=== PATIENT | female | born 1985 | race Caucasian/White ===

== ENCOUNTER 2016-10-18 15:26 | Emergency (ER) | payer OTHER ==
[~2016-10-18] VITALS: Ht 185.4 cm; Wt 125.9 kg
[~2016-10-18 15:26] MED LIST: ACET325C PO; ALBU8.5H2 INHALATION; ETON68IM3 SQ; FLUT9.9S NS; HYDR-4003 PO; OMEP20CA11 PO; ONDA4TAB6 PO; OXYC1TAB24 PO; VARE1TAB21 PO
[2016-10-18 15:30] VITALS: BP 120/73; PULSE 77; RESP 10; O2SAT 99
--- NOTE | 2016-10-18 16:34 | DRSVH ---
PROCEDURE: X-RAY RIGHT ANKLE, MINIMUM THREE VIEWS ([id number]) INDICATIONS: fall TECHNIQUE: 3 views of the ankle were acquired. COMPARISON: None. FINDINGS: Bones: No fractures or dislocations. Ankle mortise is normally aligned. No suspicious bony lesions . Posterior calcaneal enthesophyte. Soft tissues: No tibiotalar joint effusion. Achilles tendon appears normal. IMPRESSION: No displaced fracture seen. If there is continued pain, followup exam or additional carroll ging such as MRI or CT could be performed for further assessment. Dictated by: Oliver Adams RRA Interpreted: Rupal Rosado MD on 10/18/2016 at 16:33 Transcribed by: LOIDA on 10/18/2016 at 16:34 Approved by: Rupal Rosado MD, PhD on 10/18/2016 at 17:21
--- NOTE | 2016-10-18 16:35 | ED.REPORT ---
HPI-Extremity Problem Lower Date of Service Oct 18, 2016 ED Provider: Pardeep Way PA-C Claudia is an otherwise healthy 31-year-old female who presents with a chief complaint of right ankle pain. She reports the pain started this morning when she slipped in a puddle and had to adjust rapidly to keep from falling. She describes sharp pain with weightbearing on the lateral aspect of her ankle and the top of her foot. She has been able to bear weight since the accident. Denies numbness, tingling. Nursing Notes Stated Complaint: RT ANKLE PAIN Chief Complaint: Extremity Trauma Nursing Notes Reviewed: Yes Allergies: Coded Allergies: fluoxetine HCl (Verified Allergy, Severe, Rash,SUICIDAL IDEATION, 03/16/16) Coconut (Verified Allergy, Intermediate, HIVES, 03/16/16) bupropion HCl (Verified Allergy, Mild, Hives, 03/16/16) ibuprofen (Unverified Adverse Reaction, Severe, GI BLEEDING, 03/16/16) sertraline (Unverified Adverse Reaction, Severe, MIGRAINE HEADACHE, ) Scheduled Albuterol HFA (Proair HFA) 8.5 Gm Hfa.aer.ad 2 PUFFS INHALATION Q4H Etonogestrel (Nexplanon) 68 Mg Implant 68 MG SQ UD Fluticasone Propionate (Flonase Allergy Relief) 50 Mcg/Actuation [place].susp 9.9 ML NS DAILY Omeprazole (Omeprazole) 20 Mg Capsule.dr 40 MG PO DAILY Scheduled PRN Acetaminophen (Acetaminophen) 325 Mg Capsule 650 MG PO BID PRN PRN For Pain Hydrocodone-Acetaminophen 5-325 mg (Hydrocodone-Acetaminophen 5-325 mg) 1 Each Tablet 1 TABLET PO Q6H PRN PRN For Pain Ondansetron (Zofran) 4 Mg Tablet 4 MG PO Q4H PRN PRN For Nausea oxyCODONE-Acetaminophen 5-325 mg (oxyCODONE-Acetaminophen 5-325 mg) 1 Each Tablet 1-2 TAB PO Q6H PRN PRN For Pain Miscellaneous Medications Varenicline Tartrate (Chantix) 1 Each Tab.ds.pk 1 EACH PO General Time Seen by MD: 16:24 Chief Complaint Ankle injury right Past Medical History Past Medical History Admit for a pancreatitis to [facility] February 2016, peak lipase 1379 (this was months post cholecystectomy) History of anxiety and depression Reports: GERD Reports: Pancreatitis Past Surgical History 3 Bilateral knee arthroscopies Reports: Cholecystectomy Smoking History Current Every Day Smoker Social History Other Social History: Local resident Ambulatory Status Independent Review of Systems Review of Systems Note: Negative unless stated otherwise in history of present illness Physical Exam General: Well appearing, well developed, well nourished, no acute distress. Right ankle: Minimal swelling, no ecchymosis. Mild tenderness over the calcaneofibular ligament. No tenderness over anterior talofibular, posterior talofibular, deltoid ligament. No tenderness over the malleoli, base of fifth metatarsal or the navicular. Range of motion is intact. DP and PT pulses are not appreciated bilaterally, however brisk capillary refill. Head: Atraumatic, normocephalic. Eyes: No scleral icterus or injection. No discharge. Vision grossly intact. ENT: Voice clear, hearing grossly intact. Respiratory: No respiratory distress, no increased work of breathing. Speaks in complete sentences. Skin: Warm and dry. Neurological: Grossly nonfocal. Psychological: alert and oriented. Speech appropriate, linear and logical. Behavior appropriate. Initial Vital Signs Vital Signs (First) Date Time Temp Pulse Resp B/P Pulse Ox O2 Delivery O2 Flow Rate FiO2 10/18/16 15:30 36.0 77 10 120/73 99 Room Air Initial VS: Reviewed, Vital signs normal Interpretation & Diagnostics X-Ray Interpretation Xray Interpretation: PROCEDURE: X-RAY RIGHT ANKLE, MINIMUM THREE VIEWS ([id number]) INDICATIONS: fall IMPRESSION: No displaced fracture seen. If there is continued pain, followup exam or additional imaging such as MRI or CT could be performed for further assessment. Interpretation / Wet Read by: Interpret - Radiologist, Interp - P Re-Eval/Medical Decision Med Decision/Clinical Course Otherwise healthy 31 female with right ankle pain after a slip and near fall. She has been able to walk on the limb since the accident. Neurovascularly intact. X-rays reveal no fracture. I believe this is a mild sprain. Place the patient in a stirrup splint and discharged home with instructions for over- the-counter analgesia, primary care follow-up and return precautions. Discharge & Departure Impression: Primary Impression: Sprain of ankle, left Encounter type: initial encounter Involved ligament of ankle: unspecified ligament Qualified Code: S93.402A - Sprain of unspecified ligament of left ankle, initial encounter Disposition: Home Discharge Condition All VS Reviewed: Yes Condition: Stable Patient Instructions: Ankle Sprain (ED) Additional Instructions: Evaluation for right ankle pain in the emergency department. X-rays reveal no fracture. This is most likely a mild sprain, which should resolve on its own over the next week or so. We have put in a stirrup splint for support, you can use this as long as you feel it is helpful. I also recommended supportive shoes. Rest as much as possible and elevate the ankle for 20-30 minutes 3-4 times a day. Ice the ankle tonight. I also recommend 1000 mg of acetaminophen (Tylenol) every 6 hours for pain. Follow up with your primary care provider in approximately 1 week if your symptoms have not significantly improved. Return to emergency department for any new or worsening symptoms including increasing pain, numbness in your toes. Referrals: Izzy Zuniga (PCP) EDSupervising Provider for APC: Ever Lopez DO copies to: Izzy Zuniga Seth PA-C Oct 18, 2016 16:35
== END 2016-10-18 17:41 | disposition home or self-care (01) ==
LOC: SED 15:26
DX: S93.402A Sprain of unspecified ligament of left ankle, initial encounter (principal); W18.40XA Slipping, tripping and stumbling without falling, unspecified, initial encounter; Y93.89 Activity, other specified; Y92.9 Unspecified place or not applicable; Y99.9 Unspecified external cause status; K21.9 Gastro-esophageal reflux disease without esophagitis; F17.200 Nicotine dependence, unspecified, uncomplicated; Z88.6 Allergy status to analgesic agent; Z88.8 Allergy status to other drugs, medicaments and biological substances

== ENCOUNTER 2017-04-10 22:46 | Emergency (ER) | payer OTHER ==
[~2017-04-10] VITALS: Ht 185.4 cm; Wt 77.3 kg
[~2017-04-10 22:46] MED LIST changes: -Acetaminophen IV 1,000 MG in IV Premix 1 EACH IV ONE; -Bupivacaine-MPF 0.5% 30 mL Inj INFILTRATE ONE; -CeFAZolin Inj 3 GM in IV Premix 1 EACH IV ONE; -Dexamethasone 4 mg/mL Inj ONE; -HYDROmorphone 1 mg/mL Inj ONE; -Lactated Ringer's 1,000 ML IV ONE; -Lactated Ringer's 1,000 ML IV SCH; -MetoCLOpramide 5 mg/mL 2 mL Inj IVPUSH PRN; -Ondansetron 2 mg/mL 2 mL Inj IVPUSH PRN; -Propofol 10,000 mCg/mL 20 mL Inj ONE; -Rocuronium 10 mg/mL 5 mL Inj ONE; -fentaNYL-PF 50 mCg/mL 2 mL Inj ONE; -oxyCODONE-Acetamin 5-325 mg Tablet PO PRN
[2017-04-10 23:11] VITALS: BP 126/71; PULSE 82; RESP 25; O2SAT 95
--- NOTE | 2017-04-10 23:51 | ED.REPORT ---
HPI- Female Date of Service Apr 10, 2017 ED Provider: Tony Prasad MD Pt is a 32 year old female post vaginal hysterectomy today presenting to the ED via EMS complaining of catheter issues. She had a catheter placed at 1400 after the hysterectomy because they punctured her bladder and has not drained any urine at all. She complains of intense suprapubic pain radiating up through her body. Denies fever, chills, nausea, vomiting, diarrhea, SOB or wheezing. She has a follow up appointment in 1 week. Nursing Notes Stated Complaint: URINARY OBSTRUCTION Chief Complaint: General Complaint Nursing Notes Reviewed: Yes Allergies: Coded Allergies: fluoxetine HCl (Verified Allergy, Severe, Rash,SUICIDAL IDEATION, 03/16/16) Coconut (Verified Allergy, Intermediate, HIVES, 03/16/16) bupropion HCl (Verified Allergy, Mild, Hives, 03/16/16) ibuprofen (Unverified Adverse Reaction, Severe, GI BLEEDING, 03/16/16) sertraline (Unverified Adverse Reaction, Severe, MIGRAINE HEADACHE, ) Scheduled Etonogestrel (Nexplanon) 68 Mg Implant 68 MG SQ DAILY Ranitidine (Ranitidine) 150 Mg Capsule 150 MG PO BID Scheduled PRN ([tylenol]) 500mg 2 CAPSULE Q6H PRN PRN For Pain oxyCODONE-Acetaminophen 5-325 mg (oxyCODONE-Acetaminophen 5-325 mg) 1 Each Tablet 1 TAB PO Q6H PRN PRN For Pain General Time Seen by MD: 23:19 Chief Complaint Urination decreased Hx Obtained From: Patient, EMS Arrived By: Ambulance Sudden in Onset?: No Onset Occurred: 5 - 8 hours ago Symptom Duration: Since onset Location: : Abdomen lower Quality: Painful Radiation: Abdomen upper Severity: Current: Severe Severity: Maximum: Severe Recent Healthcare: Recent doctor visit, Previous surgery Similar Sx Previous: No Past Medical History Past Medical History Admit for a pancreatitis to [facility] February 2016, peak lipase 1379 (this was months post cholecystectomy) History of anxiety and depression Reports: GERD Reports: Pancreatitis Past Surgical History 3 Bilateral knee arthroscopies Reports: Cholecystectomy, Hysterectomy Smoking History Light Tobacco Smoker Social History Other Social History: Local resident Ambulatory Status Independent Review of Systems Constitutional: Denies: Chills, Fever GI: Reports: Abdominal pain, Denies: Diarrhea, Nausea, Vomiting Female: Reports: Urination decreased Complete sys rev & neg: except as marked. Respiratory: Denies: Shortness of breath, Wheezing Physical Exam Initial Vital Signs Vital Signs (First) Date Time Temp Pulse Resp B/P Pulse Ox O2 Delivery O2 Flow Rate FiO2 04/10/17 23:11 36.5 82 25 126/71 95 Room Air Initial VS: Reviewed, Vital signs normal Head / Eyes: Atraumatic, Normocephalic, PERRL ENT: Mucous membranes moist, Conjunctiva normal, No scleral icterus Neck: Supple, Non-tender, Full range of motion Respiratory: Breath sounds normal, Clear to auscultation, No respiratory distress Cardiovascular: Regular rate & rhythm, Heart sounds normal, Intact distal pulses Extremities: Vascular intact, Neuro intact, No swelling, No tenderness Skin: Warm, Dry, No cyanosis Neurologic: Alert, Oriented, Nonfocal Psychiatric: Mood/affect normal, Behavior normal, Normal thought content General/Constitutional: Awake, Alert Pt is pale post-op Abdomen: Atraumatic, No distention Tenderness/Guarding/Rebound: Positive: Tender diffuse Re-Eval/Medical Decision Med Decision/Clinical Course 32-year-old female with plugged catheter which was irrigated and is now flowing functionally. Re-Evaluation/Progress : Time of Eval: 23:45 Patient Status: Condition improved Re-Evaluation/Progress Note: Discussed plan for discharge. Pt understands and agrees with plan. Counseled Regarding: Diagnosis, Lab results, Need for follow-up, When/why to return to ED Discharge & Departure Impression: Primary Impression: Gillespie catheter problem Encounter type: initial encounter Qualified Code: T83.9XXA - Unspecified complication of genitourinary prosthetic device, implant and graft, initial encounter Disposition: Home Discharge Condition All VS Reviewed: Yes Patient Instructions: Gillespie Catheter Placement and Care (ED) Additional Instructions: There were small blood clots blocking the catheter. These have been removed and the urine is flowing well now. Follow-up with Dr. Gloria as planned. Call me at [phone] between 9 PM and 6 AM for the next couple nights to be of any questions or concerns. Referrals: Izzy Zuniga (PCP) Scribe Attestation Portions of this note were transcribed by Hermelinda Mercado. I, Dr. Prasad personally performed the history, physical exam and medical decision-making; I reviewed and confirmed the accuracy of the information in the transcribed note. Signed by: Kathy Smiley, 04/10/2017. copies to: Izzy Zuniga Howard L MD Apr 10, 2017 23:51 HERMELINDA MERCAOD Apr 10, 2017 23:57
[2017-04-11 00:02] VITALS: BP 161/99; PULSE 89; RESP 20; O2SAT 96
== END 2017-04-11 00:03 | disposition home or self-care (01) ==
LOC: SED 22:46 → EDBD 22:46 → SED 04-11 00:03
DX: T83.091A Other mechanical complication of indwelling urethral catheter, initial encounter (principal); Z90.710 Acquired absence of both cervix and uterus; K21.9 Gastro-esophageal reflux disease without esophagitis; F41.9 Anxiety disorder, unspecified; F32.9 Major depressive disorder, single episode, unspecified; Z87.891 Personal history of nicotine dependence; K86.1 Other chronic pancreatitis; F17.200 Nicotine dependence, unspecified, uncomplicated; Y84.6 Urinary catheterization as the cause of abnormal reaction of the patient, or of later complication, without mention of misadventure at the time of the procedure; Z79.1 Long term (current) use of non-steroidal anti-inflammatories (NSAID)

== ENCOUNTER → 2017-04-10 | Day surgery (SDC) | payer OTHER ==
[2017-04-10] VITALS (13 sets, daily range): BP systolic 118–149; BP diastolic 68–86; PULSE 70–94; RESP 16–32; O2SAT 93–97
[~2017-04-10] VITALS: Ht 185.4 cm; Wt 121.8 kg
[~2017-04-10] MED LIST changes: -ACET325C PO; -ALBU8.5H2 INHALATION; +Acetaminophen IV 1,000 MG in IV Premix 1 EACH IV ONE; +Bupivacaine-MPF 0.5% 30 mL Inj INFILTRATE ONE; +CeFAZolin Inj 3 GM in IV Premix 1 EACH IV ONE; +Dexamethasone 4 mg/mL Inj ONE; -FLUT9.9S NS; -HYDR-4003 PO; +HYDROmorphone 1 mg/mL Inj ONE; +Lactated Ringer's 1,000 ML IV ONE; +Lactated Ringer's 1,000 ML IV SCH; +MetoCLOpramide 5 mg/mL 2 mL Inj IVPUSH PRN; -OMEP20CA11 PO; -ONDA4TAB6 PO; +Ondansetron 2 mg/mL 2 mL Inj IVPUSH PRN; +Propofol 10,000 mCg/mL 20 mL Inj ONE; +RANI150C4 PO; +Rocuronium 10 mg/mL 5 mL Inj ONE; -VARE1TAB21 PO; +fentaNYL-PF 50 mCg/mL 2 mL Inj ONE; +oxyCODONE-Acetamin 5-325 mg Tablet PO PRN; +tylenol
--- NOTE | 2017-04-10 07:50 | PCM.HPANE ---
Patient Data Surgeon Admitting Provider: Attending Provider:Alla Gloria MD Primary Care Physician:Izzy Zuniga Other Provider:Alisha Dee Anesthesia Reason for Visit Abnormal Uterine Bleeing Ht/WT & BMI Height (Feet): 6 Height (Inches): 1 Weight (Kilograms): 121.8 Body Mass Index 35.00 Allergies Coded Allergies: fluoxetine HCl (Verified Allergy, Severe, Rash,SUICIDAL IDEATION, 03/16/16) Coconut (Verified Allergy, Intermediate, HIVES, 03/16/16) bupropion HCl (Verified Allergy, Mild, Hives, 03/16/16) ibuprofen (Unverified Adverse Reaction, Severe, GI BLEEDING, 03/16/16) sertraline (Unverified Adverse Reaction, Severe, MIGRAINE HEADACHE, ) Past Anesthesia History Anesthesia History: Denies:: Abnormal Airway, Anesthesia Reactions (past hx of "itching" shaking post anes), Difficult Intubation, Fam Anesthesia Reaction, Fam Malignant Hypertherm, Malignant Hyperthermia Diabetes History Hx Diabetes?: No MRSA MRSA: No Medications Hypertension Medication: No Home Meds Incl Beta Rich: No Reported Medications Ranitidine 150 Mg [id number] Mg PO BID Ref 0 04/03/17 oxyCODONE-Acetaminophen 5-325 mg 1 Each Tablet1 Tab PO Q6H PRN For Pain Ref 0 04/03/17 [tylenol] 500mg No Conflict Check2 Capsule Q6H PRN For Pain 04/03/17 Etonogestrel (Nexplanon)68 Mg [id number] Mg SQ DAILY 04/03/17 Discontinued Reported Medications Albuterol HFA (Proair HFA)8.5 Gm Hfa.aer.ad2 Puffs INHALATION Q4H #1 INHALER 03/16/16 Acetaminophen 325 Mg [id number] Mg PO BID PRN For Pain 02/08/16 Omeprazole 20 Mg Capsule.dr40 Mg PO DAILY Ref 0 02/04/16 Varenicline Tartrate (Chantix)1 Each Tab.ds.pk1 Each PO 02/04/16 Ondansetron (Zofran)4 Mg Tablet4 Mg PO Q4H PRN For Nausea 06/08/15 Etonogestrel (Nexplanon)68 Mg Coifqkz27 Mg SQ UD 06/08/15 Fluticasone Propionate (Flonase Allergy Relief)50 Mcg/Actuation [place].susp9.9 Ml NS DAILY 06/08/15 Hydrocodone-Acetaminophen 5-325 mg 1 Each Tablet1 Tablet PO Q6H PRN For Pain Ref 0 06/08/15 Discontinued Scripts oxyCODONE-Acetaminophen 5-325 mg 1 Each Tablet1-2 Tab PO Q6H PRN For Pain #20 TABLET Ref 0 Prov:Leandro Gibson MD 04/14/16 History History of ENT Problems?: Yes HEENT History: Denies:: Abnormal Airway Cataracts Difficult Intubation Dysphagia Glaucoma Hearing Problem Sinus Problem Denture Type: None Teeth Condition: Within Normal Limits Hx of Heart Problems?: No Cardiovascular History: Denies:: Abdominal Aortic Aneurism Atrial Fibrillation Chest Pain Congestive Heart Failure Heart Murmur Hypertension Irregular Heartbeat Pacemaker Hx of Respiratory Problem?: Yes Respiratory History: Positive for:: Dyspnea (INTERMITTANT WISEMAN W/ SHEEZING) Pneumonia (prior hx of, last about one year) Denies:: Asthma (when she is ill only) COPD Cough Emphysema Hemoptysis Oxygen Administration Pulmonary Embolism Tuberculosis Use of C-PAP Machine Hx Neurologic Problems?: Yes Neurological History: Positive for:: Headaches (around menstrual cycle) Denies:: CVA Dementia Dizziness Multiple Sclerosis Parkinson's Disease Seizures Hx of GI Problems?: Yes Hx of Problems?: No Genitourinary History: Denies:: HX of Hemodialysis Kidney Stones HX of Peritoneal Dialysis: No Female Hx: Denies:: Currently Endometriosis Pelvic Inflammatory Problems with Breasts? Skin History: Denies:: History Skin Disorders? Pressure Ulcers Hx Musculoskeletal Problems?: No Musculoskeletal History: Denies:: Back Injury Degenerative Joint Fibromyalgia Joint Replacement Musculoskeletal Trauma (hx of prior knee arthroscopies) Systemic Lupus Hx of Psycho/Social Problems?: Yes Psycho Social History: Positive for:: Anxiety Hx Depression Suicide Attempt (last time 2005) Denies:: Bipolar Disorder Hx Surgeries?: Yes (GORDO, C SECTION X3, BILAT KNEE) Hx Any Other Health Problems?: Yes Other History: Positive for:: Hospitalization Denies:: Cancer Thyroid Disease History Blood Transfusions: Positive for:: Accept Blood Products? Denies:: Blood Transfusions Hx Diabetes: No Hx Alcohol Use: NoHx Substance Use: Yes (marijuana- inhale daily) Smoking Status: Light Tobacco Smoker Have You Smoked inLast 12 mo: Yes Stop/Bang S-Snoring: Do You Snore Loudly: No T-Tired: feel tired, fatigued: Yes O-Obsered: Observed not breath: No P-Blood Pressure: treated: No B- Body Mass Index > 35 kg/m2: No A- Age over 50: No N- Neck Large Circumference: No G- Gender Male: No ANTOINETTE Total Score: 1 Risk Assessment Category Category 1A: Patient has history of documented sleep apnea, and HAS NOT received any narcotic, sedative or anesthesia administration during this stay. Category 1B: Patient has history of documented sleep apnea, and HAS received any narcotic , sedative or anesthesia administration during this stay Category 2: Patient has SUSPECTED Obstructive Sleep Apnea, and HAS received any narcotic , sedative or anesthesia administration during this stay. Category 3: Patient has SUSPECTED Obstructive Sleep Apnea and HAS NOT received narcotic, sedative or anesthesia administration during this stay. Category 4: Outpatient in Procedural Areas with known sleep apnea or who screen positive for High Risk via the STOP/BANG questionnaire. Exam Exam Vital Signs Vital Signs Date Time Temp Pulse Resp B/P Pulse Ox O2 Delivery O2 Flow Rate FiO2 04/10/17 06:18 35.7 78 16 118/68 96 Room Air General Appearance: Alert, Oriented X3, Cooperative, No Acute Distress HEENT/AIRWAY: MP 2 Lungs: Normal Air Movement Heart: Exam Unremarkable Meds/Labs/Diagnostics Admission Meds Current Medications Acetaminophen 1000 mg/Premix 100 ml @ 400 mls/hr ONCE ONCE IV Last administered on 04/10/17 07:00; Start 04/10/17 at 06:00; Stop 04/10/17 at 06:14 ; Status DC Lactated Ringer's (Lr) 1,000 ml @ ud STK-MED ONCE IV Last administered on 04/10 06:15; Start 04/10/17 at 06:15; Stop 04/10/17 at 07:00; Status DC Plan Impression Patient chart reviewed, patient interviewed and anesthestic plan with risks, benefits, and alternatives discussed, and informed consent obtained. ASA Physical Status: ASA2 Mod Systemic Disease Anesthetic Plan: GA Bene/Risks/Altern/Consents: Yes HP Complete Prior to Induction: Yes Miki Birch MD Apr 10, 2017 07:49
--- NOTE | 2017-04-10 13:13 | PCM.ANEP1 ---
Post Anesthesia PACU Phase 1 Assessment Vital Signs Vital Signs Date Time Temp Pulse Resp B/P Pulse Ox O2 Delivery O2 Flow Rate FiO2 04/10/17 13:05 82 19 144/85 94 Room Air 04/10/17 13:02 37.0 94 32 147/85 93 Room Air 04/10/17 06:18 35.7 78 16 118/68 96 Room Air Anesthetic Administered: GA Level of Alertness: Awake, talking MAURICIO's with Equal Strength: Yes Pain: No Nausea or Vomiting: No CV Function & Hydration Stable: Yes Airway Device: Lungs: Normal Air Movement Dermatome Level: Full Sensation PACU Phase 2 Assessment Complications: No Follow up Care: No Patient Instructions Provided: N/A Miki Birch MD Apr 10, 2017 13:13
--- NOTE | 2017-04-10 13:24 | PCM.DIGYN ---
Surgical Discharge Instruction Dates of Hospitalization Date of Hospital Admission Providers Admitting Physician: Primary Care Physician: Izzy Zuniga Attending Physician: Alla Gloria MD Diagnosis at Time of Discharge Diagnosis at time of discharge 1. Abnormal uterine bleeding 2. Abdomenal and pelvic adhesions 3. Right Hydrosalpinx with possible endometriosis 4. Cystotomy of bladder with repair at end of the procedure. Problems: Diet Discharge Diet: No restrictions Activity Discharge Activity-General: Try not to overdue, Be up and about, Balance rest and activity, No lifting >10 pounds for 4-6 weeks, May [address] in (in two weeks and no longer taking a narcotic medication.) Dressing and Incisional Care Dressing Care: Keep dressing clean, dry & intact Hygiene: May shower, Wash incision with soap & water, NO bathtub, hot tub or whirlpool (for two weeks), Other (nothing in your vagina for 8 weeks) Additional Instructions Discharge Instructions During your procedure your bladder was entered secondary to dense scar tissue from your prior deliveries. This defect was repaired at the time of the procedure. You will need to have a Gillespie Catheter in place for the next two weeks to allow time for your bladder to heal. At the end of two weeks you will need a special x-ray called a cystogram to evaluate your bladder to make sure it has healed completely. If healed you may then have the catheter removed. I have arranged for you to follow up with Maxi Mcfadden in two weeks for a follow up. He is a Urologist and will follow up with you after your cystogram. I will plan to see you in my office in one week for a postoperative follow up and to see how you are doing. If you have any concerns please contact my office to be seen. Follow Up Plan Follow-up appointment: Weeks (1) Call your provider for: Fever, Chills, Shortness of breath, Increasing pain Alla Gloria MD Apr 10, 2017 13:24
[2017-04-10] MEDS: HYDROmorphone 1 mg/mL Inj IVPUSH PRN ×2 (13:31→13:48)
--- NOTE | 2017-04-10 13:52 | OP ---
[address] [address] OPERATIVE REPORT PATIENT: PABLO LAFLEUR : 1985 MR#: [id number] ADMIT: 04/10/2017 JOB ID: [id number] DATE OF SURGERY: 04/10/2017 PREOPERATIVE DIAGNOSIS(ES): 1. Abnormal uterine bleeding. 2. Right hydrosalpinx. POSTOPERATIVE DIAGNOSIS(ES): 1. Abnormal uterine bleeding. 2. Right hydrosalpinx. 3. Endometriosis. 4. Abdominal and pelvic adhesions PROCEDURE PERFORMED: 1. Total laparoscopic hysterectomy with bilateral salpingectomies. 2. Removal of Nexplanon. 3. Repair of cystotomy. 4. Lysis of adhesions. SURGEON: Alla Gloria M.D. VACUUM EXTRACTOR OPERATOR: Ashely Holland M.D. ANESTHESIA: General. ESTIMATED BLOOD LOSS: 60 mL. IV FLUIDS: 1300 mL of lactated Ringer's. FINDINGS AT THE TIME OF SURGERY: The uterus was normal in appearance. There was a right hydrosalpinx most likely containing endometriosis. The ovaries appeared normal bilaterally with the exception of some filmy adhesions of the overy to the pelvic side wall. The left fallopian tube was normal in appearance. There were dense adhesions of the bladder in the midline along the anterior uterine serosa. The uterus was mildly adherent on the left pelvic sidewall. There were also omental adhesions to the midline just below the umbilicus. Survey of the upper abdomen was normal. On the left pelvic sidewall, there were some dark implants consistent with possible endometriosis. There were some filmy adhesions of the posterior cul-de-sac. PROCEDURE: The patient was taken to the operating room, where her general anesthesia was obtained without difficulty. She was placed in a lithotomy position in the [facility]. A surgical time-out was performed. At the beginning of the procedure, the patient's left arm was prepped with Betadine and the Nexplanon implant was removed. The implant was palpated and then a small skin incision was made over the tip of the implant and the implant was removed without difficulty intact. The skin was closed with Dermabond and a pressure bandage applied. At this point, the patient's arms were then tucked and the patient was prepared and draped in a normal sterile fashion. A total laparoscopic hysterectomy was then performed. The umbilicus was injected with 0.5% Marcaine plain and a Veress needle was inserted at the base of patient's umbilicus and a pneumoperitoneum was obtained with CO2 gas to 15 mmHg. A 5 mm skin incision was made at the base of patient's umbilicus and a 5 mm applied blunt trocar was inserted directly into the patient's peritoneal cavity using the Visiport function of this device. Survey of the abdomen and pelvis was noted as above. At this time a left and right lower quadrant port sites were marked and injected with 0.5% Marcaine plain. A 5 mm skin incision was made and the trocars were inserted under direct visualization. The omental adhesions to the midline were taken down with the Thunderbeat cautery device. The patient was then placed into Trendelenburg and the uterus was elevated. The fallopian tubes bilaterally were elevated and transected along the mesosalpinx using the Thunderbeat cautery device and removed through the 5 mm ports. The right fallopian tube was too large to fit through the port and this was placed in the posterior cul-de-sac. At this point the left uterine ovarian ligament was then transected with the Thunderbeat cautery device and this was carried around to the round ligament, which was then transected and the anterior leaf of the broad ligament was opened and the uterine artery on the left was skeletonized and transected with the Thunderbeat. The anterior portion of the broad ligament was carried around anteriorly to the point of maximal dense adhesions. At this point our attention was then turned to the patient's right adnexa and the right utero-ovarian ligament was transected with Thunderbeat cautery device. Then the round ligament was transected and the anterior leaf of the broad ligament was opened. The uterine arteries were skeletonized on the right and cauterized with the Thunderbeat cautery device. At this point of the procedure, blunt and sharp dissection was performed with the Thunderbeat cautery device anteriorly trying to dissect away dense adhesions. This was quite extensive. During our dissection, the bladder was entered sharply with the Thunderbeat device and the Gillespie bulb was visualized. At this point, the bladder was clearly visualized and the remaining portions of the dense adhesions were taken down with the Thunderbeat cautery device. The uterine arteries were then skeletonized further to just below the VCare cuff. At this point, the vagina was then entered sharply with Thunderbeat cautery device and a circumferential incision was made around the VCare cuff freeing the uterus from the vagina. The uterus and right fallopian tube was then removed through the patient's vagina and a sponge inside a glove was placed in the vagina to help maintain the pneumoperitoneum. The vaginal cuff was repaired with a 2-0 V lock in a running fashion. At this point, a telephone conversation was had with Dr. Maxi Mcfadden who who does not perform laparoscopic repairs to cystotomies. After verbal consultation the cystotomy was repaired in a two layer closure. The first layer was a 2-0 Vicryl suture in a running fashion. The second layer was a 2-0 V-Loc suture in a running fashion. The bladder was then backfilled with 2 mL of normal saline and methylene blue and there was no leakage from the repair site. The bladder was then emptied. All instruments were removed from the patient's peritoneal cavity and pneumoperitoneum was released. The skin incision was closed with 4-0 Monocryl in a subcuticular fashion and Dermabond applied. A cystoscopy of the bladder was then performed and there was bilateral spillage of urine from both ureters at the end of the procedure. The cystotomy repair site was noted in the posterior wall close to the dome of the bladder. This was well away from the trigone. The bladder was then emptied and Gillespie catheter was placed. All lap, instrument, and needle counts correct x2 at the end of the procedure. The patient was taken to the recovery room awake and in good condition. DENISE
--- NOTE | 2017-04-18 17:14 | PATH ---
SURGICAL PATHOLOGY Attending Physician:Alla Gloria, CASE STATUS: Signed Out PATIENT NAME: PABLO LAFLEUR PID: [id number] : 1985 DATE COLLECTED:04/10/2017 00:00 SPECIMEN: 1: Fallopian Tube, Biopsy 2: Fallopian Tube, Biopsy 3: Uterus +/- tubes/ovaries, except neoplastic, prolapse CLINICAL HISTORY: ABNORMAL UTERINE BLEEDING 1). LEFT FALLOPIAN TUBE 2). RIGHT FALLOPIAN TUBE 3). UTERUS FINAL DIAGNOSIS: 1. Left Fallopian Tube, Salpingectomy: Fallopian tube negative for neoplasm. 2. Right Fallopian Tube, Salpingectomy: Fallopian tube with hydrosalpinx. Negative for neoplasm. Negative for endometriosis. 3. Uterus, Hysterectomy: Cervix negative for neoplasm. Proliferative endometrium negative for neoplasm. Foci of serosal endosalpingiosis. No definite endometriosis identified. ICD10: N81.4 GROSS DESCRIPTION: The specimens are received in formalin, labeled with the patient's name, and sublabeled as the following: (1) left fallopian tube; (2) right fallopian tube; (3) uterus. (1) The specimen consists of a fimbriated fallopian tube (length- 5.5 cm, diameter-0.3 cm). The serosa is sellers-pink smooth and shiny. The lumen is sellers and unremarkable. Section code: (1A) fallopian tube, serially sectioned, assistance representative; (1B) fimbria, bivalved, entirely submitted. (2) The specimen consists of a non-fimbriated (length - 7.8 cm, diameter - 1.7 cm). The distal end is blunt. The serosa is kelly, smooth and shiny. The lumen is dilated and contains brown semi-viscus fluid. Section code: (2A) fallopian tube, serially sectioned, assistance representative; (2B) distal end, bivalved, entirely submitted; (2C, 2D) additional sections. (3) The specimen consists of a uterus (125 g, 4.5 cm AP, 11.2 cm SI, 5.3 cm ML). The ovaries and fallopian tubes are absent. The cervix (2.0 x 2.0 cm) has a transverse os and patent endocervical canal. The endometrium (average thickness-0.2 cm) is sellers-pink and flat. The myometrium (thickness-2.2 cm) is sellers-white and unremarkable. The serosa is pale sellers smooth and shiny. Section code: (3A) anterior cervix; (3B) posterior cervix; (3C, 3D) anterior endomyometrium; (3E, 3F) posterior endomyometrium; (3G, 3H, 3I) additional sections of serosa. 04/11/17 ICD-9 CODES: CPT CODES: 1: 95680 2: 88384 3: 38131 Electronically Signed Out Leandro Brady MD, Ph.D. [facility] [address], [place] [address] Technical component performed at [facility], [facility] [address], [place], [address]
== END | disposition home or self-care (01) ==
LOC: SAS 05:36
PROVIDERS: ATTEND Obstetrics & Gynecology
PROC: 0UTC4ZZ Resection of Cervix, Percutaneous Endoscopic Approach (ICD-10-PCS; 2017-04-10)
PROC: 0UT24ZZ Resection of Bilateral Ovaries, Percutaneous Endoscopic Approach (ICD-10-PCS; 2017-04-10)
PROC: 0UT74ZZ Resection of Bilateral Fallopian Tubes, Percutaneous Endoscopic Approach (ICD-10-PCS; 2017-04-10)
PROC: 0UT94ZZ Resection of Uterus, Percutaneous Endoscopic Approach (ICD-10-PCS; principal; 2017-04-10 07:30)
DX: N93.9 Abnormal uterine and vaginal bleeding, unspecified (principal); N94.89 Other specified conditions associated with female genital organs and menstrual cycle; N70.11 Chronic salpingitis; N73.6 Female pelvic peritoneal adhesions (postinfective); N80.9 Endometriosis, unspecified; Z30.49 Encounter for surveillance of other contraceptives; S37.23XA Laceration of bladder, initial encounter; N99.71 Accidental puncture and laceration of a genitourinary system organ or structure during a genitourinary system procedure
CPT/HCPCS: 11976; 51999; 58571; J0131; J0690; J1100; J1170; J1885; J2250; J2704; J3010; J7120